=== PATIENT | male | born 1955 | race Caucasian/White ===

== ENCOUNTER 2021-11-08 20:30 | Emergency (ER) | payer MEDICARE, OTHER ==
[~2021-11-08] VITALS: Ht 175.3 cm; Wt 72.3 kg
[~2021-11-08 20:30] MED LIST: DIPH25CA85 PO; NAPR220T57 PO; OMEP20TA2 PO; TETR15DR24 OP
[2021-11-08] MEDS ORDERED: TAMS-13 PO (20:51)
[2021-11-08] MEDS ORDERED: METH10SO PO (20:51)
[2021-11-08] MEDS ORDERED: DOXY-354 PO (20:51)
[2021-11-08] MEDS ORDERED: BACITRACIN 0.9 GM PACKET OINTMENT TP ONE (21:45)
[2021-11-08 22:00] VITALS: BP 124/79
== END 2021-11-08 22:39 | disposition home or self-care (01) ==
LOC: EMS 21:06
DX: Z48.00 Encounter for change or removal of nonsurgical wound dressing (principal); F17.210 Nicotine dependence, cigarettes, uncomplicated
CPT/HCPCS: 99282; 99283